=== PATIENT | male | born 1965 | race Caucasian/White ===

== ENCOUNTER 2018-04-17 10:30 | Day surgery (SDC) | payer OTHER ==
[2018-04-17] MEDS ORDERED: LR 1,000 ML IV ONE (10:39)
[2018-04-17] MEDS ORDERED: MIDAZOLAM 2 MG/2 ML VIAL IVP ONE (12:00)
--- NOTE | 2018-04-17 12:04 | PDANEPAE ---
ANE History of Present Illness 53 year old for colonoscopy ANE Past Medical History - Cardiovascular History Hx Hypertension: Yes Hx Arrhythmias: No Hx Chest Pain: No Hx Coronary Artery / Peripheral Vascular Disease: No Hx CHF / Valvular Disease: No Hx Palpitations: No Cardiovascular History Comment: high chol. was told he had a heart attack through blood work 2013. 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 slight cough from prolonged cold x1, was just given inhaler - Neurologic History Hx Cerebrovascular Accident: No Hx Seizures: No Hx Dementia: No - Endocrine History Hx Diabetes: No - Renal History Hx Renal Disorders: No - Liver History Hx Hepatic Disorders: No - Neurological & Psychiatric Hx Hx Neurological and Psychiatric Disorders: No - Cancer History Hx Cancer: No - Congenital Disorder History Hx Congenital Disorders: No - GI History Hx Gastrointestinal Disorders: Yes Gastrointestinal History Comment: reflux - Other Health History Other Health History: wears glasses/contacts. eczema- cpap exacerbates it. 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 vasectomy ANE Review of Systems Review of systems is: negative Review of Systems: - Exercise capacity METS (RN): 4 METS ANE Patient History - Allergies Allergies/Adverse Reactions: ketamine Allergy (Verified 04/16/18 14:40) extreme flight or fight response - Home Medications Home Medications: Aspirin 81mg (*) 04/16/18 [Last Taken 04/16/18] Atorvastatin Calcium 04/16/18 [Last Taken 04/16/18] Centrum Multigummies 04/16/18 [Last Taken 04/16/18] Fish Oil 1000 mg (*) 04/16/18 [Last Taken 04/16/18] Lisinopril 04/16/18 [Last Taken 04/16/18] Omeprazole Magnesium 04/16/18 [Last Taken 04/16/18] - NPO status NPO Since - Liquids (Date): 04/17/18 NPO Since - Liquids (Time): 07:30 NPO Since - Solids (Date): 04/16/18 NPO Since - Solids (Time): 05:30 - Smoking Hx Smoking Status: Former smoker - Family Anes Hx Family Hx Anesthesia Complications: none ANE Labs/Vital Signs - Vital Signs Blood Pressure: 150/103 Heart Rate: 85 Respiratory Rate: 18 O2 Sat (%): 92 Height: 172.72 cm Weight: 141.521 kg ANE Physical Exam - Airway Neck exam: FROM Mallampati Score: Class 3 Mouth exam: normal dental/mouth exam - Pulmonary Pulmonary: no respiratory distress - Cardiovascular Cardiovascular: regular rate and rhythym - ASA Status ASA Status: III ANE Anesthesia Plan Anesthesia Plan: MAC
--- NOTE | 2018-04-17 12:08 | PDGENHP ---
History & Physical Chief Complaint: screening, poss fhx cc in brother History of Present Illness: brother has ostomy ?colon cancer? Pertinent Past, Social, Family History: FHx - brother with ostomy unclera if colon caner. no tobacco rare alcohol. Obesity, hyper chol, HTN Relevant Physical Exam: A+Ox3. CTA. S1S2. +BS, soft nt Cardiorespiratory Assessment: class 3
[2018-04-17] MEDS ORDERED: PROPOFOL 200 MG/20 ML VIAL ONE (12:10)
[2018-04-17] MEDS ORDERED: fentaNYL 100 MCG/2 ML INJ ONE (12:10)
[2018-04-17] MEDS ORDERED: PROMETHAZINE HCL 25 MG/ML INJ IVP PRN (12:42)
[2018-04-17] MEDS ORDERED: NALOXONE HCL 0.4 MG/ML INJ IVP PRN (12:42)
[2018-04-17] MEDS ORDERED: ONDANSETRON 4 MG/2 ML VIAL IVP PRN (12:42)
--- NOTE | 2018-04-17 12:42 | POSTANESTH ---
Post Anesthetic Evaluation Cardiovascular Status: Normal, Stable Respiratory Status: Normal, Stable Level of Consciousness/Mental Status: Can Participate in Eval, Alert and Oriented Pain Control: Adequate, Prn Tx Ordered Nausea/Vomiting Control: Adequate, Prn Tx Ordered Complications Possibly Related to Anesthesia: None Noted
--- NOTE | 2018-04-17 13:00 | GIREPORT ---
[facility] - Endoscopy Department Patient Name: Mohsen Jaramillo Procedure Date: 04/17/2018 11:45 AM Patient Type: Outpatient Attending MD/ ER Physician: Karla Moreau Procedure: Colonoscopy Indications: Screening for colorectal malignant neoplasm Providers: Saroj Eddy MD Referring MD: Yassine Sarah MD Medicines: Total IV Anesthesia (TIVA) = IV general w/o airway Complications: No immediate complications. Estimated blood loss: Minimal. Description of Procedure: After obtaining informed consent, the scope was passed under direct vis ion. Throughout the procedure, the patient's blood pressure, pulse, and oxyg en saturations were monitored continuously. The Colonoscope with irrigatio n channel was introduced through the anus and advanced to the terminal il eum, with identification of the appendiceal orifice and IC valve. The colono scopy was performed without difficulty. The patient tolerated the procedure w ell. The quality of the bowel preparation was good. Findings: The digital rectal exam was normal. The terminal ileum appeared normal. Two sessile polyps were found in the proximal ascending colon. The poly ps were 2 to 3 mm in size. These polyps were removed with a piecemeal tech nique using a cold biopsy forceps. Resection and retrieval were complete. Estimated blood loss was minimal. A 5 mm polyp was found in the transverse colon. The polyp was semi-sess ile. The polyp was removed with a cold snare. Resection and retrieval were complete. Estimated blood loss was minimal. Multiple medium-mouthed diverticula were found in the sigmoid colon, descending colon and transverse colon. The exam was otherwise without abnormality. Estimated Blood Loss: Estimated blood loss was minimal. Post Op Diagnosis: - The examined portion of the ileum was normal. - Two 2 to 3 mm polyps in the proximal ascending colon, removed pieceme al using a cold biopsy forceps. Resected and retrieved. - One 5 mm polyp in the transverse colon, removed with a cold snare. Resected and retrieved. - Diverticulosis in the sigmoid colon, in the descending colon and in t he transverse colon. - The examination was otherwise normal. Recommendation: - Await pathology results. - My office will call with the pathology result with 5-7 days. If you h ave not heard from my office by 12-14, do not assume the pathology is justyna l, please call [phone] to get the pathology results. - Repeat colonoscopy in 3 years for surveillance based on pathology res ults. If only 1 or 2 are adenomatous, then the interval is 5 years - Please confirm reason for your brothers ostomy. Did he have a rectal cancer? - High fiber diet indefinitely. - 30-35 grams of dietary fiber per day. Can use supplemental fiber. - A high fiber diet may decrease risk of complications from diverticulo sis. There is no need to avoid seeds or nuts. - Patient has a contact number available for emergencies. The signs and symptoms of potential delayed complications were discussed with the pat ient. Return to normal activities tomorrow. Written discharge instructions we re provided to the patient. - Continue present medications. - Discharge patient to home (ambulatory). - Return to primary care physician as previously scheduled. - Thank you for allowing me to help in your patient's care. Do not hesi reyes to call with any questions. Attending Participation: I personally performed the entire procedure. Surjit Kyle M.D Saroj Eddy MD 04/17/2018 1:00:34 PM This report has been signed electronicallyMathew MD Surjit Number of Addenda: 0 Note Initiated On: 04/17/2018 11:45 AM Total Procedure Duration Time 0 hours 16 minutes 39 seconds [email or web address]
[2018-04-17 13:22] VITALS: BP 116/88
== END 2018-04-17 13:39 | disposition home or self-care (01) ==
LOC: FSGY 10:30
PROVIDERS: ATTEND Internal Medicine Gastroenterology
DX: Z12.11 Encounter for screening for malignant neoplasm of colon (principal); D12.2 Benign neoplasm of ascending colon; K63.5 Polyp of colon; K57.30 Diverticulosis of large intestine without perforation or abscess without bleeding; E66.9 Obesity, unspecified; I10 Essential (primary) hypertension; E78.5 Hyperlipidemia, unspecified; G47.33 Obstructive sleep apnea (adult) (pediatric); Z87.891 Personal history of nicotine dependence
CPT/HCPCS: J2250; J2704; J3010